=== PATIENT | male | born 1950 | race Caucasian/White ===

== ENCOUNTER 2017-10-31 17:34 | Inpatient (IN) ==
[2017-10-31] MEDS ORDERED: PNEUMOCOCCAL VACCINE (13 VALENT) 0.5 ML SYRINGE IM ONE (20:28)
[2017-10-31 20:29] LABS: Basophils # 0.1 10*3/uL (0.0-0.2); Basophils % 0.3 % (0.0-0.8); Hematocrit 50.5 VOL% (42.0-52.0); Hemoglobin 16.5 GM/DL (14.0-18.0); Immature Granulocytes % 0.4 %; Immature Granulocytes Absolute 0.07 #; Lymphocytes # 1.4 10*3/uL (1.4-4.0); Lymphocytes % 8.7 % (21.2-54.2); Mean Corpuscular HGB Conc 32.7 GM/DL (32-36); Mean Corpuscular Hemoglobin 27 PG (27-34); Mean Corpuscular Volume 83.6 FL (87-102); Mean Platelet Volume 9.5 FL (9.6-12.0); Monocytes # 0.8 10*3/uL (0.11-0.8); Monocytes % 4.7 % (1.7-12.7); Neutrophils % 85.9 % (38.7-73.9); Platelet Count 341 T/CUMM (130-400); Red Blood Count 6.04 MC/CUMM (3.8-5.5); Red Cell Distribution Width 13.8 % (9.3-17.3); White Blood Count 16.3 T/CUMM (4-12)
[2017-10-31] MEDS ORDERED: DOCUSATE SODIUM 100 MG CAPSULE PO PRN (20:33)
[2017-10-31] MEDS ORDERED: ACETAMINOPHEN 325 MG TABLET PO PRN ×2 (20:33→20:42)
[2017-10-31] MEDS ORDERED: ONDANSETRON 4 MG/2 ML VIAL IV PRN ×2 (20:33→20:42)
[2017-10-31] MEDS ORDERED: traZODone 50 MG TABLET PO PRN (20:33)
[2017-10-31] MEDS ORDERED: MORPHINE 4 MG/1 ML VIAL IV PRN ×2 (20:33→20:42)
[2017-10-31] MEDS ORDERED: NICOTINE 21 MG/24 HR PATCH TRANSDERM PRN (20:33)
[2017-10-31 20:50] LABS: Albumin 4.2 G/DL (3.4-5.0); Bilirubin,Total 0.8 MG/DL (0.2-1.0); Calcium 9.4 MG/DL (8.5-10.1); Osmolality,Calculated 282.7 MOS/KG (273-304); Total Protein 8.7 G/DL (6.4-8.3)
[2017-10-31] MEDS ORDERED: LORazepam 2 MG/1 ML VIAL IV PRN (20:50)
[2017-10-31] MEDS ORDERED: DEXTROSE 50% 25 GM/50 ML VIAL IV PRN (20:54)
[2017-10-31] MEDS ORDERED: GLUCAGON 1 MG VIAL IM PRN (20:54)
[2017-10-31 20:59] LABS: Troponin I 0.242 NG/ML (0.00-0.045)
[2017-10-31] MEDS ORDERED: SODIUM CHLORIDE 0.9% 1,000 ML IV SCH (21:00)
[2017-10-31] MEDS ORDERED: ENOXAPARIN 40 MG/0.4 ML SYRINGE SUBCUT SCH (21:00)
[2017-10-31] MEDS: METOPROLOL TARTRATE 50 MG TABLET PO SCH (21:08)
[2017-10-31] MEDS: ENOXAPARIN 40 MG/0.4 ML SYRINGE SUBCUT SCH (21:08)
[2017-10-31] MEDS: amLODIPine 5 MG TABLET PO SCH (21:08)
[2017-10-31] MEDS: hydrALAZINE 20 MG/1 ML VIAL IV PRN (21:09)
[2017-10-31] MEDS: SODIUM CHLORIDE 0.45% 1,000 ML IV SCH (21:13)
[2017-10-31] MEDS ORDERED: QUEtiapine 25 MG TABLET PO ONE (23:49)
[2017-11-01] MEDS: INSULIN REGULAR 100 UNIT/ML SUBCUT SCH ×5 (00:01→21:15)
[2017-11-01] MEDS ORDERED: ZALEPLON 5 MG CAPSULE PO PRN (00:57)
[2017-11-01] MEDS ORDERED: SODIUM CHLORIDE 0.9% 500 ML IV ONE (02:04)
[2017-11-01 03:38] LABS: Apearance,Urine CLEAR (Clear); Bacteria,Urine Occasional /HPF (Few); Bilirubin,Urine Negative (Negative); Blood, Urine Negative (Negative); Glucose,Urine (UA) Negative (Negative); Hyaline Casts,Urine 1 /LPF (0-3); Ketones,Urine Negative (Negative); Mucus,Urine Occasional /LPF (Occasional); Nitrite,Urine Negative (Negative); Protein,Urine 100 MG/DL; RBC,Urine 1 /HPF (0-4); Squamous Epithelial Cell,Urine Occasional /HPF (0-10); Urine Color Yellow (Yellow); Urine Specific Gravity 1.024 (1.001-1.035); Urine Urobilinogen < 2.0 EU/DL (0.2-1.0); WBC,Urine <1 /HPF (0-6)
[2017-11-01] MEDS: hydrALAZINE 20 MG/1 ML VIAL IV PRN (04:17)
[2017-11-01 04:59] LABS: Basophils # 0.1 10*3/uL (0.0-0.2); Basophils % 0.4 % (0.0-0.8); Hematocrit 48.5 VOL% (42.0-52.0); Hemoglobin 15.9 GM/DL (14.0-18.0); Immature Granulocytes % 0.4 %; Immature Granulocytes Absolute 0.05 #; Lymphocytes # 2.8 10*3/uL (1.4-4.0); Lymphocytes % 21.9 % (21.2-54.2); Mean Corpuscular HGB Conc 32.8 GM/DL (32-36); Mean Corpuscular Hemoglobin 28 PG (27-34); Mean Corpuscular Volume 84.1 FL (87-102); Mean Platelet Volume 9.8 FL (9.6-12.0); Monocytes % 7.7 % (1.7-12.7); Neutrophils # 8.9 10*3/uL (1.4-7.4); Neutrophils % 69.6 % (38.7-73.9); Platelet Count 293 T/CUMM (130-400); Red Blood Count 5.77 MC/CUMM (3.8-5.5); Red Cell Distribution Width 13.7 % (9.3-17.3); White Blood Count 12.7 T/CUMM (4-12)
[2017-11-01 05:03] LABS: INR 1.1; PT Patient Result 11.1 SECS
[2017-11-01 05:30] LABS: Albumin 3.8 G/DL (3.4-5.0); Bilirubin,Total 1.3 MG/DL (0.2-1.0); Calcium 9.1 MG/DL (8.5-10.1); Osmolality,Calculated 278.8 MOS/KG (273-304); Potassium 3.4 MMOL/L (3.5-5.1); Risk Ratio 6.41; VLDL CHOLESTEROL 27.4 MG/DL
[2017-11-01 05:31] LABS: Calcium 9.1 MG/DL (8.5-10.1); Osmolality,Calculated 280.7 MOS/KG (273-304); Potassium 3.5 MMOL/L (3.5-5.1)
[2017-11-01 05:34] LABS: Troponin I 0.248 NG/ML (0.00-0.045)
[2017-11-01] MEDS: oxyCODONE/ACETAMINOPHEN 5-325 MG TABLET PO PRN ×2 (05:50→05:53)
[2017-11-01] MEDS: SODIUM CHLORIDE 0.45% 1,000 ML IV SCH ×2 (08:08→17:43)
[2017-11-01] MEDS ORDERED: PANTOPRAZOLE 40 MG TABLET PO SCH (09:00)
[2017-11-01] MEDS ORDERED: ZIPRASIDONE 20 MG/1 ML VIAL IM ONE (09:08)
[2017-11-01] MEDS ORDERED: ZIPRASIDONE 20 MG/1 ML VIAL IM PRN (09:10)
[2017-11-01] MEDS: ALPRAZolam 0.5 MG TABLET PO SCH (11:07)
[2017-11-01] MEDS: PANTOPRAZOLE 40 MG TABLET PO SCH (11:07)
[2017-11-01] MEDS: METOPROLOL TARTRATE 50 MG TABLET PO SCH ×2 (11:07→21:14)
[2017-11-01] MEDS: LOSARTAN 50 MG TABLET PO SCH (11:07)
[2017-11-01] MEDS: amLODIPine 5 MG TABLET PO SCH ×2 (11:08→21:14)
[2017-11-01] MEDS: hydroCHLOROthiazide 12.5 MG CAPSULE PO SCH (11:08)
[2017-11-01 14:46] LABS: Apearance,Urine CLEAR (Clear); Bilirubin,Urine Negative (Negative); Blood, Urine Moderate mg/dL (Negative); Glucose,Urine (UA) Negative (Negative); Ketones,Urine 20 mg/dL (Negative); Nitrite,Urine Negative (Negative); Protein,Urine Negative; RBC,Urine 26 /HPF (0-4); Urine Color Yellow (Yellow); Urine Specific Gravity 1.017 (1.001-1.035); Urine Urobilinogen < 2.0 EU/DL (0.2-1.0); WBC,Urine 13 /HPF (0-6)
[2017-11-01] MEDS: ENOXAPARIN 40 MG/0.4 ML SYRINGE SUBCUT SCH (21:15)
[2017-11-02] MEDS: hydrALAZINE 20 MG/1 ML VIAL IV PRN (04:45)
[2017-11-02] MEDS: SODIUM CHLORIDE 0.45% 1,000 ML IV SCH ×3 (05:17→14:03)
[2017-11-02 06:18] VITALS: BP 160/80
[2017-11-02 06:29] LABS: Basophils # 0.1 10*3/uL (0.0-0.2); Basophils % 0.5 % (0.0-0.8); Eosinophils % 0.1 % (0.00-10.9); Hematocrit 51.5 VOL% (42.0-52.0); Hemoglobin 17.3 GM/DL (14.0-18.0); Immature Granulocytes Absolute 0.11 #; Lymphocytes # 1.8 10*3/uL (1.4-4.0); Lymphocytes % 15.9 % (21.2-54.2); Mean Corpuscular HGB Conc 33.6 GM/DL (32-36); Mean Corpuscular Hemoglobin 28 PG (27-34); Mean Corpuscular Volume 83.6 FL (87-102); Mean Platelet Volume 9.4 FL (9.6-12.0); Monocytes # 0.7 10*3/uL (0.11-0.8); Monocytes % 6.1 % (1.7-12.7); Neutrophils # 8.7 10*3/uL (1.4-7.4); Neutrophils % 76.4 % (38.7-73.9); Platelet Count 293 T/CUMM (130-400); Red Blood Count 6.16 MC/CUMM (3.8-5.5); Red Cell Distribution Width 13.7 % (9.3-17.3); White Blood Count 11.4 T/CUMM (4-12)
[2017-11-02 07:00] LABS: Albumin 3.6 G/DL (3.4-5.0); Bilirubin,Total 1.4 MG/DL (0.2-1.0); Calcium 9.5 MG/DL (8.5-10.1); Osmolality,Calculated 270.2 MOS/KG (273-304); Potassium 3.7 MMOL/L (3.5-5.1); Total Protein 8.1 G/DL (6.4-8.3)
[2017-11-02] MEDS: amLODIPine 5 MG TABLET PO SCH (08:58)
[2017-11-02] MEDS: METOPROLOL TARTRATE 50 MG TABLET PO SCH (08:58)
[2017-11-02] MEDS: PANTOPRAZOLE 40 MG TABLET PO SCH (08:58)
[2017-11-02] MEDS: ALPRAZolam 0.5 MG TABLET PO SCH (08:58)
[2017-11-02] MEDS: LOSARTAN 50 MG TABLET PO SCH (08:58)
[2017-11-02] MEDS: INSULIN REGULAR 100 UNIT/ML SUBCUT SCH ×2 (08:58→11:44)
[2017-11-02] MEDS: hydroCHLOROthiazide 12.5 MG CAPSULE PO SCH (08:58)
[2017-11-02] MEDS ORDERED: ASPIRIN CHEW 81 MG TABLET PO ONE (10:01)
[2017-11-02] MEDS ORDERED: PNEUMOCOCCAL VACCINE (13 VALENT) 0.5 ML SYRINGE IM ONE (12:00)
[2017-11-02] MEDS ORDERED: DESITIN 4OZ/NYSTATIN 15 GRAM MIXTURE PASTE TOP SCH (12:00)
[2017-11-03] MEDS ORDERED: ASPIRIN CHEW 81 MG TABLET PO SCH (09:00)
== END 2017-11-02 14:00 | DRG 885 ==
LOC: N.CC 19:27 → SUATTDRO 19:27
PROVIDERS: ADMIT Internal Medicine Geriatric Medicine; ATTEND Internal Medicine